=== PATIENT | male | born 1985 | race Caucasian/White ===

== ENCOUNTER → 2021-03-15 01:17 | Emergency (ER) | payer MEDICAID, OTHER ==
[~2021-03-15] VITALS: Ht 177.8 cm; Wt 154.2 kg
[~2021-03-15 01:17] MED LIST: ALUM & MAG HYDROX-SIMETH LIQ(MAALOX) 30 ML PO ONE; DONNATAL 5ml ORAL Elix (BELLADONNA ALK-PHENOBARB) PO ONE; LIDOCAINE VISCOUS 2% 15ML UD PO ONE
[2021-03-15 02:47] LABS: Basophils # (auto) 0 10 ^3/uL (0-0.2); Basophils % (auto) 0.4 % (0.0-2.0); Eosinophils # (auto) 0.1 10 ^3/uL (0-0.8); Eosinophils % (auto) 0.8 % (0.0-7.0); Hematocrit 46.6 % (41.0-53.0); Lymphocytes # (auto) 1.9 10 ^3/uL (0.4-5.4); Lymphocytes % (auto) 19.6 % (10.0-50.0); Mean Corpuscular Hemoglobin 29.9 pg (28.0-32.0); Mean Corpuscular Hgb Conc. 34.2 g/dL (32.0-36.0); Mean Corpuscular Volume 87.3 fL (80.0-100.0); Monocytes # (auto) 0.5 10 ^3/uL (0-1.3); Monocytes % (auto) 5.5 % (0.0-12.0); Neutrophils % (auto) 73.7 % (37.0-80.0); Red Blood Cells 5.34 10^6/uL (4.5-5.90); Red Cell Distribution Width 13.4 % (11.8-14.3); White Blood Cell 9.5 10^3/uL (4.4-10.8)
[2021-03-15 03:04] LABS: BUN/Creatinine Ratio 25.3; Calcium 9.2 mg/dL (8.5-10.1)
[2021-03-15 03:12] LABS: Total Protein 7.9 g/dL (6.4-8.2)
[2021-03-15 03:30] VITALS: BP 137/73
== END | disposition home or self-care (01) ==
LOC: ER 01:17
DX: K29.70 Gastritis, unspecified, without bleeding (principal); E11.65 Type 2 diabetes mellitus with hyperglycemia
CPT/HCPCS: 36415; 74176; 80053; 82962; 85025; 93005

== ENCOUNTER 2021-06-27 15:05 | Emergency (ER) | payer OTHER, MEDICAID ==
[~2021-06-27] VITALS: Ht 177.8 cm; Wt 147.4 kg
[2021-06-27 15:51] LABS: Basophils # (auto) 0 10 ^3/uL (0-0.2); Basophils % (auto) 0.7 % (0.0-2.0); Eosinophils # (auto) 0.1 10 ^3/uL (0-0.8); Eosinophils % (auto) 1.1 % (0.0-7.0); Hemoglobin 15.9 g/dL (13.5-17.5); Lymphocytes # (auto) 1.2 10 ^3/uL (0.4-5.4); Mean Corpuscular Hemoglobin 29.4 pg (28.0-32.0); Mean Corpuscular Hgb Conc. 33.8 g/dL (32.0-36.0); Mean Corpuscular Volume 86.9 fL (80.0-100.0); Monocytes # (auto) 0.4 10 ^3/uL (0-1.3); Monocytes % (auto) 6.9 % (0.0-12.0); Neutrophils # (auto) 3.9 10 ^3/uL (1.6-8.6); Neutrophils % (auto) 70.3 % (37.0-80.0); Nucleated Red Blood Cells % 0.2 %; Red Blood Cells 5.41 10^6/uL (4.5-5.90); Red Cell Distribution Width 13.8 % (11.8-14.3); White Blood Cell 5.6 10^3/uL (4.4-10.8)
[2021-06-27 16:15] LABS: Alanine Aminotransferase 66 U/L (16-61); Albumin 4.1 g/dL (3.4-5.0); Anion Gap 10 (5-15); Aspartate Aminotransferase 21 U/L (15-37); BUN/Creatinine Ratio 13.9; Blood Urea Nitrogen 10 mg/dL (7-18); Calcium 9.3 mg/dL (8.5-10.1); Carbon Dioxide 24 mmol/L (21-32); Chloride 106 mmol/L (98-107); GFR African American 158 mL/min; GFR Non-African American 131 mL/min; Glucose 98 mg/dL (74-106); Potassium 3.8 mmol/L (3.5-5.1); Sodium 140 mmol/L (136-145)
[2021-06-27 16:20] LABS: Alkaline Phosphatase 65 U/L (45-117); Bilirubin, Total 0.9 mg/dL (0.2-1.0)
[2021-06-27 17:33] VITALS: BP 145/81
== END 2021-06-27 19:04 | disposition home or self-care (01) ==
LOC: ER 15:05
DX: F41.1 Generalized anxiety disorder (principal); R00.2 Palpitations; E11.9 Type 2 diabetes mellitus without complications
CPT/HCPCS: 36415; 71045; 80053; 84484; 85025; 93005

== ENCOUNTER 2023-01-06 09:08 | Emergency (ER) | payer MEDICAID, OTHER ==
[~2023-01-06] VITALS: Ht 177.8 cm; Wt 160.0 kg
[2023-01-06 09:29] LABS: Basophils # (auto) 0.2 10 ^3/uL (0-0.2); Basophils % (auto) 1.9 % (0.0-2.0); Eosinophils # (auto) 0.1 10 ^3/uL (0-0.8); Hematocrit 46.9 % (41.0-53.0); Hemoglobin 15.9 g/dL (13.5-17.5); Lymphocytes # (auto) 1.8 10 ^3/uL (0.4-5.4); Mean Corpuscular Hemoglobin 29.6 pg (28.0-32.0); Mean Corpuscular Hgb Conc. 33.8 g/dL (32.0-36.0); Mean Corpuscular Volume 87.5 fL (80.0-100.0); Monocytes # (auto) 0.3 10 ^3/uL (0-1.3); Monocytes % (auto) 3.7 % (0.0-12.0); Neutrophils # (auto) 5.9 10 ^3/uL (1.6-8.6); Neutrophils % (auto) 71.4 % (37.0-80.0); Red Blood Cells 5.36 10^6/uL (4.5-5.90); Red Cell Distribution Width 14.1 % (11.8-14.3); White Blood Cell 8.2 10^3/uL (4.4-10.8)
[2023-01-06 09:49] LABS: Albumin 3.9 g/dL (3.4-5.0); BUN/Creatinine Ratio 21.1 (10.0-20.0); Calcium 9.1 mg/dL (8.5-10.1); Potassium 4.2 mmol/L (3.5-5.1)
[2023-01-06 09:51] LABS: Bilirubin, Total 0.4 mg/dL (0.2-1.0); INR 0.94 (0.9-1.15); Partial Thromboplastin Time 26.3 sec (24.6-33.4); Total Protein 7.6 g/dL (6.4-8.2)
[2023-01-06] MEDS ORDERED: LORA0.5T20 PO (10:48)
[2023-01-06 10:49] LABS: Urine Bacteria NONE SEEN /hpf (None Seen); Urine Blood Negative /uL (Negative); Urine Specific Gravity 1.022 (1.001-1.035); Urine WBC 1 /hpf (0 - 3)
[2023-01-06 12:04] VITALS: BP 107/49
== END 2023-01-06 12:05 | disposition home or self-care (01) ==
LOC: ER 09:08
DX: R07.89 Other chest pain (principal); F41.1 Generalized anxiety disorder; E11.65 Type 2 diabetes mellitus with hyperglycemia
CPT/HCPCS: 36415; 71045; 80053; 81001; 82962; 84484; 85025; 85379; 85610; 85730; 93005

== ENCOUNTER 2023-12-18 00:10 | Emergency (ER) | payer MEDICAID ==
[~2023-12-18] VITALS: Ht 177.8 cm; Wt 159.0 kg
[~2023-12-18 00:10] MED LIST changes: -ALUM & MAG HYDROX-SIMETH LIQ(MAALOX) 30 ML PO ONE; -DONNATAL 5ml ORAL Elix (BELLADONNA ALK-PHENOBARB) PO ONE; -LIDOCAINE VISCOUS 2% 15ML UD PO ONE; +LORA-1121 PO
[2023-12-18] MEDS: TETRACAINE HCL 0.5% OPTH(EYE) SOLN 4ML LEFTEYE ONE (00:24)
[2023-12-18] MEDS: TETRACAINE HCL 0.5% OPTH(EYE) SOLN 4ML ONE (00:24)
[2023-12-18 00:25] VITALS: BP 125/69; PULSE 82; RESP 18; TEMP 98.4; O2SAT 98
[2023-12-18] MEDS ORDERED: AZIT4SOL LEFTEYE (00:27)
[2023-12-18] MEDS ORDERED: IBUP-1455 PO (00:27)
[2023-12-18] MEDS: ACETAMINOPHEN/CODEINE#3 (300/30mg) TAB PO ONE (00:46)
== END 2023-12-18 00:42 | disposition home or self-care (01) ==
LOC: ER 00:10
DX: S05.02XA Injury of conjunctiva and corneal abrasion without foreign body, left eye, initial encounter (principal); E11.9 Type 2 diabetes mellitus without complications; W54.1XXA Struck by dog, initial encounter; Y93.89 Activity, other specified; Y92.89 Other specified places as the place of occurrence of the external cause; Y99.8 Other external cause status

== ENCOUNTER 2024-04-30 07:02 | Emergency (ER) | payer MEDICAID ==
[~2024-04-30] VITALS: Ht 177.8 cm; Wt 74.0 kg
[~2024-04-30 07:02] MED LIST changes: +AZIT4SOL LEFTEYE; +IBUP-1455 PO; +PANT40TA2 PO
[2024-04-30 08:34] VITALS: BP 152/83; PULSE 88; RESP 18; TEMP 98.3; O2SAT 96
[2024-04-30] MEDS ORDERED: CEPH500C PO (08:37)
[2024-04-30] MEDS ORDERED: TRIA0.02 TOP (08:37)
== END 2024-04-30 08:50 | disposition home or self-care (01) ==
LOC: ER 07:02
DX: L08.9 Local infection of the skin and subcutaneous tissue, unspecified (principal); M79.661 Pain in right lower leg; E66.01 Morbid (severe) obesity due to excess calories; J45.909 Unspecified asthma, uncomplicated; E11.9 Type 2 diabetes mellitus without complications; Z79.1 Long term (current) use of non-steroidal anti-inflammatories (NSAID); Z79.899 Other long term (current) drug therapy
CPT/HCPCS: 93971

== ENCOUNTER 2025-01-02 19:25 | Inpatient (IN) | payer MEDICAID ==
[~2025-01-02] VITALS: Ht 177.8 cm; Wt 134.0 kg
[~2025-01-02 19:25] MED LIST changes: +CEPH500C PO; +TRIA0.02 TOP
--- NOTE | 2025-01-02 19:53 | ED.PDOC ---
HPI Comments HPI: Poor Historian. * 39 y/o morbidly obese male presents with c/o nonradiating, substernal chest pain and shortness of breath with exertion, today. * Patient endorses on constant symptoms following onset 4-5 days ago. * He comments on pain being "dull" and "aching" in quality. * Patient reports his dad having a history of [place] in his 60's. Vitals Temperature: 98.6F Respiratory rate: 20 SpO2: 95%RA Heart rate: 94 Blood pressure: 124/82 Past medical history: anxiety, asthma, ADHD, depression, DM, morbid obesity, and sleep apnea, remote tobacco abuse quit 10 years ago. Past surgical history: childhood nasal surgery s/p nasal fracture Family history of coronary artery disease. REVIEW OF SYSTEMS: CONSTITUTIONAL: Denies acute: fever, diaphoresis, chills, generalized weakness. HEAD: Denies acute: headache, photophobia Eyes: Denies acute: Double vision, vision loss, eye pain, eye discharge. EARS: Denies acute: tinnitus, hearing loss, ear discharge, ear pain, THROAT: Denies acute: sore throat, swelling, difficulty swallowing , pain with swallowing, change in voice. NECK: Denies acute: neck pain, neck swelling, stiff neck. HEART: Denies acute : palpitations, LUNGS: Denies acute: wheezing, cough, hemoptysis ABDOMEN: Denies acute: abdominal pain, Nausea, Vomiting, diarrhea, melena , hematemesis, hematochezia SKIN: Denies acute: rash, redness, lesions, itchiness. EXTREMITIES: Denies acute: calf pain, numbness, tingling, weakness, denies pain in extremity. Denies acute: Low back pain. Neuro: Denies acute: focal neurological deficit, motor or sensory focal neurological deficit, tremors, seizure like activity, confusion, dizziness, change in mental status, loss of bowel or bladder function, cauda equina like symptoms. : Denies acute: dysuria, hematuria, flank pain, increase in urinary frequency. PSYCH: Denies acute: hallucination, suicidal ideation, homicidal ideation. PHYSICAL EXAM: General: no acute distress, awake and alert. Head: normocephalic, atraumatic. Neck: supple, trachea is midline, no swelling. Throat: Normal phonation. Eyes:, no erythema, no purulent discharge, no proptosis, no icterus. Heart: regular rate, regular rhythm, no significant murmur appreciated. Lungs: no apparent respiratory distress, Able to speak in full sentences. No wheezing, no rhonchi, no crackles. No stridors Clear to auscultation bilaterally. Abdomen: non tender to palpation, non distended, soft, no guarding, no rebound, + bowel sounds. Morbidly obese Neuro: Awake, Alert, oriented to name, self, situation, follows commands GCS=15. Speech is normal. Skin: no petechia, no purpura, no cyanosis, non-pale, not jaundice. Lower extremities: --trace bilateral - Pitting edema no deformity, no focal swelling, no calf TTP. Makes eye contact. moves all four extremities. Face: no apparent facial droop. Ambulating in the ED independently. ED COURSE: Chief Complaint: Chest Pain Time Seen by MD: 19:30 Primary Care Provider: NONE Reviewed Notes: Nurses Notes, Medications, Allergies Allergies: Coded Allergies: NO KNOWN ALLERGIES (Unverified , 03/06/14) Home Meds Active Scripts Cephalexin Monohydrate (Cephalexin) 500 Mg Cap, 1 CAP PO QID, #40 CAP Prov:ESDRAS ORONA 04/30/24 Triamcinolone Acetonide (Triamcinolone Acetonide) 0.025 % Cre, 1 APPLIC TOP BID, #30 GRAMS Prov:ESDRAS ORONA 04/30/24 Pantoprazole Sodium Sesquihydr (Protonix) 40 Mg Tab, 40 MG PO DAILY, #30 TAB Prov:MANI WASHINGTON MD 01/20/24 Ibuprofen Micronized (Ibuprofen) 800 Mg Tab, 800 MG PO Q8HP PRN, #15 TAB Prov:TEJ MENDEZ PAC 12/18/23 Azithromycin (Ophth) (Azasite) 1 % Julia, 2 DROP LEFTEYE QPM for 3 Days, #2.5 ML 0 Refills Prov:TEJ MENDEZ PAC 12/18/23 Lorazepam (ATIVAN TABLET) 0.5 Mg Tb, 1 TAB PO DAILY for 7 Days, #7 TAB Prov:BENJY AN MD 01/06/23 Information Source: Patient Mode of Arrival: Ambulatory Past Medical History PAST MEDICAL HISTORY: Anxiety, Asthma, Depression, DM Past Medical History (Other): ADHD, sleep apnea, morbid obesity Surgical History (Other): childhood nasal surgery s/p nasal fracture Family History Family History: Reviewed,noncontributory to illness Social History Smoker: Non-Smoker Alcohol: Denies ETOH Use Drugs: Denies Drug Use Lives In: Home EKG EKG #1: Pulse Rate (adult): 78 [place]: Normal Cardiac Rhythm: NSR Block: None Hypertrophy: None ST: Normal EKG #2: Pulse Rate (adult): 76 [place]: Normal Cardiac Rhythm: NSR Block: None Hypertrophy: None ST: Normal EKG #3: [place]: Normal Cardiac Rhythm: NSR Block: None Hypertrophy: None ST: Normal Was a procedure done? Was a procedure done?: No CP Differential Dx Differential Diagnosis: N/A Differential Diagnosis: Other (Ddx include but not limitied to gastritis, musculoskeletal pain, radiculopathy, atypical chest pain, dissection, aneurysm, ACS, unstable angina, hiatal hernia, GERD, anxiety, costochondritis, PE, pneumothroax, neoplasm, cardiac ischemia, drug abuse, anemia.) X-Ray, Labs, Meds, VS Vital Signs Date Time Temp Pulse Resp B/P (MAP) Pulse Ox O2 Delivery O2 Flow Rate FiO2 01/02/25 22:50 01/02/25 20:44 76 01/02/25 19:40 78 01/02/25 19:32 98.6 94 20 124/82 (96) 95 98.6 Lab Test 01/02/25 22:29 01/02/25 20:49 01/02/25 19:36 Range/Units Troponin I High Sensitivity Pending 4 4 </=54 ng/L White Blood Count 6.3 4.4-10.8 10^3/uL Red Blood Count 5.42 4.5-5.90 10^6/uL Hemoglobin 15.7 13.5-17.5 g/dL Hematocrit 47.1 41.0-53.0 % Mean Corpuscular Volume 86.9 80.0-100.0 fL Mean Corpuscular Hemoglobin 29.1 28.0-32.0 pg Mean Corpuscular Hemoglobin Concent 33.4 32.0-36.0 g/dL Red Cell Distribution Width 14.3 11.8-14.3 % Platelet Count 256 140-450 10^3/uL Mean Platelet Volume 8.0 6.9-10.8 fL Neutrophils (%) (Auto) 58.3 37.0-80.0 % Lymphocytes (%) (Auto) 35.0 10.0-50.0 % Monocytes (%) (Auto) 4.6 0.0-12.0 % Eosinophils (%) (Auto) 1.6 0.0-7.0 % Basophils (%) (Auto) 0.5 0.0-2.0 % Neutrophils # (Auto) 3.7 1.6-8.6 10 ^3/uL Lymphocytes # (Auto) 2.2 0.4-5.4 10 ^3/uL Monocytes # (Auto) 0.3 0-1.3 10 ^3/uL Eosinophils # (Auto) 0.1 0-0.8 10 ^3/uL Basophils # (Auto) 0 0-0.2 10 ^3/uL Nucleated Red Blood Cells 0.0 % D-Dimer, Quantitative < 0.19 0.0-0.49 mg/L FEU Sodium Level 141 136-145 mmol/L Potassium Level 3.9 3.5-5.1 mmol/L Chloride Level 107 98-107 mmol/L Carbon Dioxide Level 26 20-31 mmol/L Anion Gap 8 5-15 Blood Urea Nitrogen 9 9-23 mg/dL Creatinine 0.77 0.700-1.30 mg/dL Glomerular Filtration Rate Calc 116 >90 mL/min BUN/Creatinine Ratio 11.7 10.0-20.0 Serum Glucose 152 H 74-106 mg/dL Lactic Acid Level 1.7 0.4-2.0 mmol/L Calcium Level 10.4 8.7-10.4 mg/dL Total Bilirubin 0.7 0.2-1.0 mg/dL Aspartate Amino Transferase (AST) 17 13-40 U/L Alanine Aminotransferase (ALT) 38 7-40 U/L Alkaline Phosphatase 81 46-116 U/L B-Type Natriuretic Peptide 5.73 0-100 pg/mL Total Protein 7.4 5.7-8.2 g/dL Albumin 4.9 H 3.2-4.8 g/dL [facility] [id number] [facility] [id number] Ph: [phone] DIAGNOSTIC IMAGING Diagnostic Imaging Report : [id number] Signed PATIENT: LAUREN JAIMES ACCT: [id number] UNIT: [id number] : 1985 LOC: ER ROOM / BED: / AGE / SEX: 39 / M ADM STATUS: REG ER SERVICE 36 ORDERING PHYSICIAN: LAVELLE RAMSEY DO PROCEDURE(s): CXRP - CHEST PORTABLE REASON: CP ORDER NUMBER(s): [id number], ACCESSION NUMBER(s): [id number] CHEST RADIOGRAPH Indication: CP Technique: Single frontal view of the chest was obtained COMPARISON: XY CHEST PORTABLE on DOS: 01/20/24, XY CHEST PORTABLE on DOS: 01/06/23, CHEST XRAY 1 VIEW on DOS: 06/27/21, CXR1 on DOS: 06/27/21 FINDINGS: Lines and Tubes: None Lungs: Clear Pleura: No effusion. No pneumothorax. Cardiomediastinal contours: Unremarkable Bones: Unremarkable IMPRESSION: No acute abnormality demonstrated. ATED BY: ANDERS PEPE MD DICTATED DATE/TIME: 01/02/252010 SIGNED BY: ANDERS PEPE MD SIGNED DATE/TIME: 01/02/252010 CC: Time of 1ST Reevaluation: 19:30 Reevaluation 1ST: Unchanged Patient Education/Counseling: Diagnosis, Treatment Family Education/Counseling: No Family Present Comments Patient presented with the above HPI. Chest pain workup was initiated. patient was found with the above mentioned diagnosis. the following medications were ordered: please refer to order lists of meds and tests obtained by myself Dr. Ramsey. Patient ED course and VS have been stabilized. Patient has been reassessed in the ED and remained in a stable condition. Pertinent incidental findings were discussed with the patient and/or family. Patient/family voices understanding and is agreeable with plan. Patient has been observed in the ED adequate length of time to insure improvement/stability. Escalation of care considered: Consideration of escalation to observation or admission Patient was ADMITTED to the medicine team for further evaluation and treatment of their presentation. Patient's EKG shows abnormalities of T-wave inversions in leads V2 V3 V4 V5 V6 All the reports of any imaging studies that were ordered by myself were reviewed by myself. Departure 1 Departure Time of Disposition: 20:01 Impression: Primary Impression: Chest pain Additional Impression: Abnormal EKG Disposition: 09 ADMITTED INPATIENT Admit to: Tele Condition: Guarded Discharged With: Self Critical Care Note Critical Care Time?: No Heart Score Heart Score: Heart Score Response (Comments) Value History Slightly Suspicious [address]-Deviation 2 Age <45 0 Risk Factors 1 or 2 risk factors 1 Troponin Normal limit 0 Total 3 I personally scribed for LAVELLE RAMSEY DO ([email or web address]) on 01/02/25 at 19:52. Electronically submitted by Corky Oquendo ([email or web address]). I personally scribed for LAVELLE RAMSEY DO ([email or web address]) on 01/02/25 at 20:10. Electronically submitted by Corky Oquendo ([email or web address]). I personally scribed for LAVELLE RAMSEY DO ([email or web address]) on 01/02/25 at 22:50. Electronically submitted by Corky Oquendo ([email or web address]). LAVELLE RAMSEY DO Jan 02, 2025 19:52
[2025-01-02 19:56] LABS: Basophils # (auto) 0 10 ^3/uL (0-0.2); Basophils % (auto) 0.5 % (0.0-2.0); Eosinophils # (auto) 0.1 10 ^3/uL (0-0.8); Eosinophils % (auto) 1.6 % (0.0-7.0); Hematocrit 47.1 % (41.0-53.0); Hemoglobin 15.7 g/dL (13.5-17.5); Lymphocytes # (auto) 2.2 10 ^3/uL (0.4-5.4); Mean Corpuscular Hemoglobin 29.1 pg (28.0-32.0); Mean Corpuscular Hgb Conc. 33.4 g/dL (32.0-36.0); Mean Corpuscular Volume 86.9 fL (80.0-100.0); Monocytes # (auto) 0.3 10 ^3/uL (0-1.3); Monocytes % (auto) 4.6 % (0.0-12.0); Neutrophils # (auto) 3.7 10 ^3/uL (1.6-8.6); Neutrophils % (auto) 58.3 % (37.0-80.0); Platelet Count (auto) 256 10^3/uL (140-450); Red Blood Cells 5.42 10^6/uL (4.5-5.90); Red Cell Distribution Width 14.3 % (11.8-14.3); White Blood Cell 6.3 10^3/uL (4.4-10.8)
[2025-01-02 20:09] LABS: Alanine Aminotransferase 38 U/L (7-40); Alkaline Phosphatase 81 U/L (46-116); Anion Gap 8 (5-15); Aspartate Aminotransferase 17 U/L (13-40); BUN/Creatinine Ratio 11.7 (10.0-20.0); Bilirubin, Total 0.7 mg/dL (0.2-1.0); Calcium 10.4 mg/dL (8.7-10.4); Carbon Dioxide 26 mmol/L (20-31); Chloride 107 mmol/L (98-107); Potassium 3.9 mmol/L (3.5-5.1); Sodium 141 mmol/L (136-145); Total Protein 7.4 g/dL (5.7-8.2)
--- NOTE | 2025-01-02 20:14 | DVH ---
CHEST RADIOGRAPH Indication: CP Technique: Single frontal view of the chest was obtained COMPARISON: XY CHEST PORTABLE on DOS: 01/20/24, XY CHEST PORTABLE on DOS: 01/06/23, CHEST XRAY 1 VIEW on DOS: 06/27/21, CXR1 on DOS: 06/27/21 FINDINGS: Lines and Tubes: None Lungs: Clear Pleura: No effusion. No pneumothorax. Cardiomediastinal contours: Unremarkable Bones: Unremarkable IMPRESSION: No acute abnormality demonstrated.
[2025-01-02 20:17] LABS: Albumin 4.9 g/dL (3.2-4.8); Blood Urea Nitrogen 9 mg/dL (9-23); Glucose 152 mg/dL (74-106)
--- NOTE | 2025-01-02 20:24 | ECG ---
[facility] Test Date: 2025-01-02 Test Time: 19:40:51 Pat Name: LAUREN JAIMES Department: ER Room: 0280T Gender: M Pin Cleaner: SHAYAN : 1985 Requested By: LAVELLE RAMSEY Order Number: [id number] Reading MD: Ruslan Root Measurements Intervals [place] Rate: 78 P: 82 MN: 154 QRS: 72 QRSD: 93 T: 78 QT: 491 QTc: 560 Interpretive Statements Sinus rhythm Abnormal R-wave progression, early transition Borderline T wave abnormalities Prolonged QT interval Electronically Signed On 01-04-2025 22:35:52 PDT by Ruslan Root Please click the below link to view image of tracing.
[2025-01-02] MEDS: ASPirin 325 MG TAB PO ONE (20:30)
[2025-01-02] MEDS: NITROGLYCERIN 0.4 MG SL TAB SL ONE (20:30)
--- NOTE | 2025-01-02 23:25 | DVHHPRES ---
History of Present Illness Resident Creating Document: NIKKI RODRIGUEZ RESDIENT History of Present Illness This is a 39-year-old morbidly obese male with past medical history of asthma, anxiety, depression, dyslipidemia, diabetes, sleep apnea came to the hospital due to chest pain for 5 days. He reports intermittent central chest pain, in variable functional class, 4/10, which increases with taking food with no clear relieving factor. He also reports shortness of breaths. He denies fever, cough, nausea, vomiting, or any recent bowel or bladder habit changes. PMHx: asthma, anxiety, depression, dyslipidemia, diabetes, sleep apnea, morbidly obese PSHx: Nasal surgery due to nasal function Family history: Noncontributory Social history: Ex-smoker with 5 pack year history, denies any other drug use Home medication: Patient was previously prescribed medicine, does not remember the names except metformin, nonadherence Allergic history: No known allergies Patient seen and examined at bedside. Currently has no new complaints. Review of Systems Review of Systems General: patient denies fever, fatigue, weaknes, sweating, any recent changes in appetite and weight HEENT: No headaches, visiual changes, hearing loss, tinnitus, nasal congestion and discharge, and sore throat. Cardiovascular: Reports chest pain and shortness of breaths Respiratory: No cough, and wheezing. Gastrointestinal: Denies nausea, vomiting, dysphagia, odynophagia, heartburn, abdominal pain, flatulence, bloating, diarrhea, constipation, change in stool, or blood in stool. Genitourinary: No dysuria, hematuria, discharge, frequency, urgency, nocturia, incontinence, and urinary retention. Endocrine: No heat or cold intolerance, polydipsia, polyuria, and polyphagia. Neurological: No dizziness, extremity weakness and numbness, tremors, gait disturbance, seizures, and memory impairment. Psychiatric: Denies depression, anxiety,or insomnia. Musculoskeletal: Denies neck pain, stiffness and swelling, back pain, muscle weakness, joint pain, stiffness, swelling, or limited range of motion. Skin: No rashes, itching, skin lesion, changes in hair, nail, skin texture and breast. Hematologic/Lymphatic: Denies easy bruising, bleeding tendencies, or lymph node enlargement. Allergies: Coded Allergies: NO KNOWN ALLERGIES (Unverified , 03/06/14) Exam Vital Signs Vital Signs Date Time Temp Pulse Resp B/P (MAP) Pulse Ox O2 Delivery O2 Flow Rate FiO2 01/02/25 22:50 01/02/25 19:32 98.6 20 124/82 (96) 95 98.6 Exam General Appearance: Alert, Oriented X3, Cooperative, No acute distress morbidly obese HEENT: Atraumatic, PERRLA, EOMI, Mucous membrane moist/pink Respiratory: Clear to auscultation, Normal air movement Cardiovascular: Regular rate, Normal S1, Normal S2, No murmurs, no chest wall tenderness Abdominal: Normal bowel sounds, Soft, No tenderness, No hepatospenomegaly, No masses Extremities: Bilateral lower limb grade 1 pedal edema Skin: No rashes, No breakdown, No significant lesion Neuro: Normal gait, Normal speech, Strength at 5/5 X4 ext, Normal tone, Sensation intact, Cranial nerves 3-12 NL, Reflexes 2+ Psych/Mental Status: Mental status NL, Mood NL Labs/Xrays Labs Test 01/02/25 22:29 01/02/25 19:36 Range/Units Troponin I High Sensitivity 5 </=54 ng/L White Blood Count 6.3 4.4-10.8 10^3/uL Red Blood Count 5.42 4.5-5.90 10^6/uL Hemoglobin 15.7 13.5-17.5 g/dL Hematocrit 47.1 41.0-53.0 % Mean Corpuscular Volume 86.9 80.0-100.0 fL Mean Corpuscular Hemoglobin 29.1 28.0-32.0 pg Mean Corpuscular Hemoglobin Concent 33.4 32.0-36.0 g/dL Red Cell Distribution Width 14.3 11.8-14.3 % Platelet Count 256 140-450 10^3/uL Mean Platelet Volume 8.0 6.9-10.8 fL Neutrophils (%) (Auto) 58.3 37.0-80.0 % Lymphocytes (%) (Auto) 35.0 10.0-50.0 % Monocytes (%) (Auto) 4.6 0.0-12.0 % Eosinophils (%) (Auto) 1.6 0.0-7.0 % Basophils (%) (Auto) 0.5 0.0-2.0 % Neutrophils # (Auto) 3.7 1.6-8.6 10 ^3/uL Lymphocytes # (Auto) 2.2 0.4-5.4 10 ^3/uL Monocytes # (Auto) 0.3 0-1.3 10 ^3/uL Eosinophils # (Auto) 0.1 0-0.8 10 ^3/uL Basophils # (Auto) 0 0-0.2 10 ^3/uL Nucleated Red Blood Cells 0.0 % D-Dimer, Quantitative < 0.19 0.0-0.49 mg/L FEU Sodium Level 141 136-145 mmol/L Potassium Level 3.9 3.5-5.1 mmol/L Chloride Level 107 98-107 mmol/L Carbon Dioxide Level 26 20-31 mmol/L Anion Gap 8 5-15 Blood Urea Nitrogen 9 9-23 mg/dL Creatinine 0.77 0.700-1.30 mg/dL Glomerular Filtration Rate Calc 116 >90 mL/min BUN/Creatinine Ratio 11.7 10.0-20.0 Serum Glucose 152 H 74-106 mg/dL Lactic Acid Level 1.7 0.4-2.0 mmol/L Calcium Level 10.4 8.7-10.4 mg/dL Total Bilirubin 0.7 0.2-1.0 mg/dL Aspartate Amino Transferase (AST) 17 13-40 U/L Alanine Aminotransferase (ALT) 38 7-40 U/L Alkaline Phosphatase 81 46-116 U/L B-Type Natriuretic Peptide 5.73 0-100 pg/mL Total Protein 7.4 5.7-8.2 g/dL Albumin 4.9 H 3.2-4.8 g/dL Assessment/Plan Assessment/Plan Chest pain, likely due to GERD ? ACS History of GERD EKGs shows left ventricular strain pattern, serial trop I is within normal limits Echocardiogram Aspirin Pain control Protonix Diabetes (hemoglobin A1c 6.7%) Currently on insulin sliding scale Morbid obesity BMI is 51.9 Dyslipidemia Currently on atorvastatin sleep apnea, BiPAP during night History of asthma, stable ADHD Depression Anxiety Nonadherence to medicine Patient is not taking metformin DIET: Cardiac diet DVT PROPHYLAXIS: Lovenox GI PROPHYLAXIS:: Protonix CODE STATUS: Goal of care discussed for more than 18 minutes, full code DISPOSITION: Med/surge Patient's status and paln discussed with the patient. Case discussed with Dr. Fatima. Plan discussed with: Patient, Other (RN) My Orders Orders - NIKKI RODRIGUEZ RESDIENT Procedure Category Date Status Time Admit ADMIT 01/02/25 Verified 23:17 Code Status CODE 01/02/25 Verified 23:17 Vital Signs [facility] 01/02/25 Verified 23:17 Review Orders With AMARA 01/02/25 Verified Adm. 23:17 Consistent DIET 01/03/25 Verified Carb(Ccho)Diabetes Breakfast Acetaminophen Tablet PHA 01/02/25 Verified (Tylenol Tablet) 23:30 Notify Md Of Changes [facility] 01/02/25 Verified From Base 23:17 Advance Directive [facility] 01/02/25 Verified 23:17 Echo 2d Mode Cardiac US 01/02/25 Verified DOP 23:17 Urinalysis LAB 01/02/25 Verified 23:17 Patient Condition ORDERS 01/02/25 Verified 23:17 Allergies [facility] 01/02/25 Verified 23:17 Hydrocodone-Acet PHA 01/02/25 Verified 5/325mg Tab ([place] 23:30 Date of Service: Jan 02, 2025 Billing Provider: JESUS FATIMA MD Common Visit Codes: [id number] INP/OBS CARE (HIGH) NIKKI RODRIGUEZ RESDIENT Jan 02, 2025 23:25 NIRMALA DAVIES RESIDENT Jan 03, 2025 04:02 JESUS FATIMA MD Jan 03, 2025 17:40
[2025-01-02] MEDS: PANTOPRAZOLE 40 MG/10 ML VIAL INJ IV ONE (23:30)
[2025-01-02] MEDS: ATORVASTATIN 20 MG TAB PO ONE (23:30)
[2025-01-02] MEDS ORDERED: NITROGLYCERIN 0.4 MG SL TAB SL PRN (23:30)
[2025-01-02] MEDS ORDERED: HYDROcodone-ACET 5/325MG TAB PO PRN (23:30)
[2025-01-02] MEDS ORDERED: DEXTROSE (50%) 50ML SYRG IV PRN (23:30)
[2025-01-02] MEDS ORDERED: ACETAMINOPHEN 325 MG TAB PO PRN (23:30)
[2025-01-02] MEDS ORDERED: MORPHINE SULFATE INJ 2 MG/ml SYRG IV PRN (23:30)
[2025-01-02 23:46] VITALS: BP 124/82; PULSE 76; RESP 20; TEMP 98.6; O2SAT 95
[2025-01-03] VITALS (8 sets, daily range): BP systolic 123–142; BP diastolic 68–88; PULSE 58–89; RESP 14–18; TEMP 98.2–98.6; O2SAT 94–99
[2025-01-03 00:15] LABS: Magnesium 2.2 mg/dL (1.6-2.6)
[2025-01-03 04:02] LABS: Basophils # (auto) 0 10 ^3/uL (0-0.2); Basophils % (auto) 0.6 % (0.0-2.0); Eosinophils # (auto) 0.1 10 ^3/uL (0-0.8); Eosinophils % (auto) 1.8 % (0.0-7.0); Hematocrit 42.9 % (41.0-53.0); Hemoglobin 14.9 g/dL (13.5-17.5); Lymphocytes # (auto) 2.1 10 ^3/uL (0.4-5.4); Mean Corpuscular Hemoglobin 30.4 pg (28.0-32.0); Mean Corpuscular Hgb Conc. 34.8 g/dL (32.0-36.0); Mean Corpuscular Volume 87.4 fL (80.0-100.0); Monocytes # (auto) 0.5 10 ^3/uL (0-1.3); Neutrophils # (auto) 3.1 10 ^3/uL (1.6-8.6); Neutrophils % (auto) 52.6 % (37.0-80.0); Platelet Count (auto) 227 10^3/uL (140-450); Red Blood Cells 4.91 10^6/uL (4.5-5.90); Red Cell Distribution Width 14.2 % (11.8-14.3)
[2025-01-03 04:30] LABS: INR 1.09 (0.9-1.15); Partial Thromboplastin Time 26.6 SEC (24.5-34.5); Prothrombin Time 11.5 sec (9.3-11.8)
[2025-01-03 06:39] LABS: Potassium 3.9 mmol/L (3.5-5.1); Sodium 141 mmol/L (136-145)
[2025-01-03 06:40] LABS: Anion Gap 8 (5-15); Carbon Dioxide 25 mmol/L (20-31)
[2025-01-03 06:41] LABS: Calcium 9.8 mg/dL (8.7-10.4)
[2025-01-03 06:46] LABS: BUN/Creatinine Ratio 12.2 (10.0-20.0); Blood Urea Nitrogen 9 mg/dL (9-23)
[2025-01-03 06:47] LABS: Chloride 108 mmol/L (98-107)
[2025-01-03 06:48] LABS: Glucose 120 mg/dL (74-106)
--- NOTE | 2025-01-03 06:50 | ECG ---
[facility] Test Date: 2025-01-02 Test Time: 20:44:07 Pat Name: LAUREN AJIMES Department: ER Room: 0280T Gender: M Mail Sorter: SHAYAN : 1985 Requested By: LAVELLE RAMSEY Order Number: [id number] Reading MD: Ruslan Root Measurements Intervals [place] Rate: 76 P: 87 RI: 153 QRS: 77 QRSD: 89 T: 80 QT: 501 QTc: 564 Interpretive Statements Sinus rhythm Abnormal R-wave progression, early transition Borderline repolarization abnormality Prolonged QT interval Electronically Signed On 01-04-2025 22:36:20 PDT by Ruslan Root Please click the below link to view image of tracing.
[2025-01-03] MEDS: InsuLIN REG 1unit/0.01ml Soln (100units/ml) SC SCH (07:00)
[2025-01-03] MEDS: ACCU-CHEK COMFORT CURVE STRIP VI SCH (07:04)
[2025-01-03 08:06] LABS: Urine Bacteria None Seen /hpf (None Seen)
[2025-01-03 08:17] LABS: Urine Blood Negative /uL (Negative); Urine Clarity Clear (Clear); Urine Color Light-Yellow (Yellow); Urine Mucus FEW (None Seen); Urine Protein, UAD Negative (Negative); Urine Specific Gravity 1.021 (1.001-1.035); Urine Squamous Epithelial Cell FEW /hpf (<5); Urine Urobilinogen Normal (Negative); Urine WBC 2 /HPF (0-3); Urine pH 6.5 (5.0-9.0)
[2025-01-03 08:31] LABS: Amphetamine Screen, Urine Neg (NEGATIVE); Barbiturate Scree,Urine Neg (NEGATIVE); Benzodiazephine Screen, Urine Neg (NEGATIVE); Cannabinoid Screen, Urine Neg (NEGATIVE); Cocaine Screen, Urine Neg (NEGATIVE); Opiate Scree,Urine Neg (NEGATIVE); Phencyclidine Screen, Urine Neg (NEGATIVE)
[2025-01-03] MEDS: ASPirin 81 mg TAB PO SCH (09:07)
[2025-01-03] MEDS: PANTOPRAZOLE 40 MG/10 ML VIAL INJ IV SCH (09:07)
[2025-01-03] MEDS: ENOXAPARIN SOD 40 MG/0.4 ML SYRINGE SC SCH (09:07)
--- NOTE | 2025-01-03 10:28 | DVH ---
Date: 01/03/2025 09:02 AM Examination: XY KUB ABDOMEN SINGLE VIEW History: abdominal pain Comparison: None TECHNIQUE: Frontal views of the abdomen was obtained. FINDINGS: Nonspecific bowel gas pattern with mildly dilated loops of small bowel measuring up to 2.6 cm with a gas and stool visualized in the colon. The lung bases are unremarkable. No acute osseous abnormality identified. IMPRESSION: Nonspecific bowel gas pattern with mildly dilated loops of small bowel measuring up to 2.6 cm with a gas and stool visualized in the colon.
[2025-01-03] MEDS: LACTULOSE 20Gm/30ML SOLN PO ONE (12:08)
--- NOTE | 2025-01-03 12:47 | DVHPNRES ---
Progress Note Date Seen: Jan 03, 2025 Resident Creating Document: NANCY NEWBERRY RESIDENT Has the PT tested + for MRSA If YES, has PT been informed?: No Medical Necessity Reason Pt with a Central, PICC or Fol: No Subjective Review of Systems This is a 39-year-old morbidly obese male with past medical history of asthma, anxiety, depression, dyslipidemia, diabetes, sleep apnea came to the hospital due to chest pain for 5 days. He reports intermittent central chest pain, in variable functional class, 4/10, which increases with taking food with no clear relieving factor. He also reports shortness of breaths. He denies fever, cough, nausea, vomiting, or any recent bowel or bladder habit changes. PMHx: asthma, anxiety, depression, dyslipidemia, diabetes, sleep apnea, morbidly obese PSHx: Nasal surgery due to nasal function Family history: Noncontributory Social history: Ex-smoker with 5 pack year history, denies any other drug use Home medication: Patient was previously prescribed medicine, does not remember the names except metformin, nonadherence Allergic history: No known allergies Patient seen and examined at bedside. Currently has no new complaints. Objective vital signs Vital Sign Date Time Temp Pulse Resp B/P (MAP) Pulse Ox O2 Delivery O2 Flow Rate FiO2 01/03/25 12:34 98.0 68 15 121/70 (87) 98 98.0 01/03/25 07:42 Room Air* 0 21 medications Current Medications Medications Dose Ordered Sig/[place] Route Start Time Stop Time Status Last Admin Dose Admin Acetaminophen 650 mg Q6HP PRN PO 01/02/25 23:30 Acetaminophen/ Hydrocodone Bitart 1 tab Q4HP PRN PO 01/02/25 23:30 Enoxaparin Sodium 40 mg DAILY SC 01/03/25 10:00 01/03/25 09:07 40 MG Nitroglycerin 0.4 mg Q5MINP PRN SL 01/02/25 23:30 Morphine Sulfate 2 mg Q30M PRN IV 01/02/25 23:30 Aspirin 81 mg DAILY PO 01/03/25 10:00 01/03/25 09:07 81 MG Atorvastatin Calcium 40 mg HS PO 01/03/25 22:00 Pantoprazole Sodium 40 mg DAILY IV 01/03/25 10:00 01/03/25 09:07 40 MG Diagnostic Test (Pha) 1 strip ACHS 01/03/25 07:00 01/03/25 12:33 1 STRIP Insulin Human Regular ACHS SC 01/03/25 07:00 Dextrose 50 ml UD PRN IV 01/02/25 23:30 Examination General Appearance: Alert, Oriented X3, Cooperative, No acute distress morbidly obese HEENT: Atraumatic, PERRLA, EOMI, Mucous membrane moist/pink Respiratory: Clear to auscultation, Normal air movement Cardiovascular: Regular rate, Normal S1, Normal S2, No murmurs, no chest wall tenderness Abdominal: Normal bowel sounds, Soft, No tenderness, No hepatospenomegaly, No masses Extremities: no edema Skin: No rashes, No breakdown, No significant lesion Neuro: Normal gait, Normal speech, Strength at 5/5 X4 ext, Normal tone, Sensation intact, Cranial nerves 3-12 NL, Reflexes 2+ Psych/Mental Status: Mental status NL, Mood NL laboratory and microbiology Laboratory Tests 01/03/25 06:13 01/03/25 03:42 Test 01/03/25 06:13 Range/Units Serum Glucose 120 H 74-106 mg/dL Problem List/Assessment/Plan Problem List/Assessment/Plan Chest pain and epigastric pain, likely due to GERD Ruled out ACS History of GERD EKGs shows left ventricular strain pattern, serial trop I is within normal limits Echocardiogram: EF 60% RV strain due to sleep apnea Aspirin Pain control Protonix Diabetes (hemoglobin A1c 6.7%) Currently on insulin sliding scale Morbid obesity BMI is 51.9 Dyslipidemia Currently on atorvastatin sleep apnea, BiPAP during night History of asthma, stable ADHD Depression Anxiety DIET: Cardiac diet DVT PROPHYLAXIS: Lovenox GI PROPHYLAXIS:: Protonix CODE STATUS: Goal of care discussed for more than 18 minutes, full code DISPOSITION: Med/surge Patient's status and plan discussed with the patient. Case discussed with Dr. Gan Plan discussed with: Patient, Other My Orders My Orders Orders - NANCY NEWBERRY RESIDENT Procedure Category Date Status Time Kub Abdomen Single XY 01/03/25 Resulted View 06:54 NANYC NEWBERRY RESIDENT Jan 03, 2025 12:47
[2025-01-03] MEDS ORDERED: B CO PO (15:17)
[2025-01-03] MEDS ORDERED: CHOL20007 OR (15:17)
--- NOTE | 2025-01-03 17:13 | DVHSR ---
APPROVED REPORT EXAM: Two-dimensional and M-mode echocardiogram with Doppler and color Doppler. Blood Pressure: 126/73 mmHg INDICATION Chest Pain RISK FACTORS Obesity: Height: 5'10", Weight: 361 DIMENSIONS LVDd4.0 (3.8-5.7cm)LA (2D)4.1 (1.9-4.0cm)Aortic Root3.3 (2.0-3.7cm) LVDs2.9 (2.5-4.0cm)LA (MM) (1.9-4.0cm)Aortic Cusp Exc1.8 (1.5-2.0cm) EF (%) 55.0 (55-70%)Rt. Atrium4.7 (1.9-4.0cm)Asc. Aorta cm IVSd1.2 (0.7-1.1cm)RV (D)4.5 (1.8-2.4cm) PWd1.2 (0.7-1.1cm) Mitral Valve MitralMitral Stenosis E wave0.95m/sMV Mean GR.mmHg A wave0.92m/sMV Peak GR.mmHg E/A ratio1.02D MVAcm2 DECEL [id number] 1/2 Timems Aortic Valve Aortic ValveAortic Stenosis V11.10m/Nova Mean GR.3mmHg V21.24m/Nova Peak GR.6mmHg LVOT Diameter2.2 (1.8-2.4cm)Doppler AVA3.37cm2 Pulmonic Valve V20.98m/s Tricuspid Valve TR Velocity2.81m/s [id number] Other Information Technically limited study due to body habitus. Conclusion Normal LV size with low normal systolic function. LVEF 50-55%. Normal wall motion. Mild LVH. Probably grade 1 diastolic dysfunction. Normal RV size and function. Mild biatrial enlargement. No significant valvular disease. Trace MR. Trace TR. RVSP estimated at 40 mmHg based on RAP of 8 mmHg. Dilated, collapsing IVC. No pericardial effusion. TDS.
[2025-01-03] MEDS: ATORVASTATIN 20 MG TAB PO SCH (21:28)
[2025-01-04 01:00] VITALS: BP 134/75; PULSE 58; RESP 18; TEMP 97.9; O2SAT 98
[2025-01-04 05:00] VITALS: BP 131/87; PULSE 56; RESP 18; TEMP 98.7; O2SAT 96
[2025-01-04 07:48] VITALS: O2SAT 95
[2025-01-04 08:00] VITALS: PULSE 54
[2025-01-04 09:00] VITALS: BP 140/91; PULSE 67; RESP 17; TEMP 97.5; O2SAT 97
--- NOTE | 2025-01-04 10:38 | ECG ---
[facility] Test Date: 2025-01-02 Test Time: 22:45:18 Pat Name: LAUREN JAIMES Department: ED Room: 0280T A Gender: M Can Repairer: SHAYAN : 1985 Requested By: LAVELLE RAMSEY Order Number: [id number] Reading MD: Ruslan Root Measurements Intervals [place] Rate: 69 P: 85 [place]: 154 QRS: 78 QRSD: 88 T: 70 QT: 359 QTc: 385 Interpretive Statements Sinus rhythm Abnormal R-wave progression, early transition Borderline T wave abnormalities Electronically Signed On 01-04-2025 22:36:29 PDT by Ruslan Root Please click the below link to view image of tracing.
[2025-01-04] MEDS ORDERED: PANT40TA2 PO (14:28)
[2025-01-04] MEDS ORDERED: ACET-1882 PO (14:28)
--- NOTE | 2025-01-04 16:04 | DVHDSRES ---
Discharge Summary Date of Admission Resident Creating Document: NANCY NEWBERRY RESIDENT Jan 02, 2025 at 23:17 Date of Discharge: Jan 04, 2025 Admitting Diagnosis chest pain Labs/Diagnostic Data: Laboratory Results Test 01/04/25 06:32 01/03/25 07:57 01/03/25 06:13 01/03/25 03:42 POC Glucose 121 mg/dl (70-106) Urine Color Light-yellow (Yellow) Urine Clarity Clear (Clear) Urine pH 6.5 (5.0-9.0) Urine Specific [place] 1.021 (1.001-1.035) Urine Protein Negative (Negative) Urine Ketones Negative (Negative) Urine Blood Negative /uL (Negative) Urine Nitrite Negative (Negative) Urine Bilirubin Negative (Negative) Urine Urobilinogen Normal mg/dL (Negative) Urine Leukocyte Esterase Negative /uL (Negative) Urine RBC <1 /hpf (0 - 3) Urine Microscopic WBC 2 /HPF (0-3) Urine Squamous Epithelial Cells Few /hpf (<5) Urine Bacteria None seen /hpf (None Seen) Urine Mucus Few (None Seen) Urine Glucose Normal mg/dL (Normal) Urine Opiates Screen Neg (NEGATIVE) Urine Fentanyl Screen Neg (NEGATIVE) Urine Barbiturates Screen Neg (NEGATIVE) Urine Phencyclidine Screen Neg (NEGATIVE) Urine Amphetamines Screen Neg (NEGATIVE) Urine Benzodiazepines Screen Neg (NEGATIVE) Urine Cocaine Screen Neg (NEGATIVE) Urine Cannabinoids Screen Neg (NEGATIVE) Sodium Level 141 mmol/L (136-145) Potassium Level 3.9 mmol/L (3.5-5.1) Chloride Level 108 mmol/L (98-107) Carbon Dioxide Level 25 mmol/L (20-31) Anion Gap 8 (5-15) Blood Urea Nitrogen 9 mg/dL (9-23) Creatinine 0.74 mg/dL (0.700-1.30) Glomerular Filtration Rate Calc 117 mL/min (>90) BUN/Creatinine Ratio 12.2 (10.0-20.0) Serum Glucose 120 mg/dL (74-106) Calcium Level 9.8 mg/dL (8.7-10.4) White Blood Count 6.0 10^3/uL (4.4-10.8) Red Blood Count 4.91 10^6/uL (4.5-5.90) Hemoglobin 14.9 g/dL (13.5-17.5) Hematocrit 42.9 % (41.0-53.0) Mean Corpuscular Volume 87.4 fL (80.0-100.0) Mean Corpuscular Hemoglobin 30.4 pg (28.0-32.0) Mean Corpuscular Hemoglobin Concent 34.8 g/dL (32.0-36.0) Red Cell Distribution Width 14.2 % (11.8-14.3) Platelet Count 227 10^3/uL (140-450) Mean Platelet Volume 7.9 fL (6.9-10.8) Neutrophils (%) (Auto) 52.6 % (37.0-80.0) Lymphocytes (%) (Auto) 36.0 % (10.0-50.0) Monocytes (%) (Auto) 9.0 % (0.0-12.0) Eosinophils (%) (Auto) 1.8 % (0.0-7.0) Basophils (%) (Auto) 0.6 % (0.0-2.0) Neutrophils # (Auto) 3.1 10 ^3/uL (1.6-8.6) Lymphocytes # (Auto) 2.1 10 ^3/uL (0.4-5.4) Monocytes # (Auto) 0.5 10 ^3/uL (0-1.3) Eosinophils # (Auto) 0.1 10 ^3/uL (0-0.8) Basophils # (Auto) 0 10 ^3/uL (0-0.2) Nucleated Red Blood Cells 0.0 % Prothrombin Time 11.5 sec (9.3-11.8) Prothrombin Time INR 1.09 (0.9-1.15) Activated Partial Thromboplast Time 26.6 SEC (24.5-34.5) Test 01/02/25 22:29 01/02/25 19:36 Magnesium Level 2.2 mg/dL (1.6-2.6) Troponin I High Sensitivity 5 ng/L (</=54) Triglycerides Level 202 mg/dL (< 150) Cholesterol Level 158 mg/dL (< 200) LDL Cholesterol 109 mg/dL (< 100) HDL Cholesterol 32 mg/dL (40-59) Thyroid Stimulating Hormone (TSH) 2.92 uIU/mL (0.55-4.78) D-Dimer, Quantitative < 0.19 mg/L FEU (0.0-0.49) Hemoglobin A1c 6.7 % A1C (<5.7) Lactic Acid Level 1.7 mmol/L (0.4-2.0) Total Bilirubin 0.7 mg/dL (0.2-1.0) Aspartate Amino Transferase (AST) 17 U/L (13-40) Alanine Aminotransferase (ALT) 38 U/L (7-40) Alkaline Phosphatase 81 U/L (46-116) B-Type Natriuretic Peptide 5.73 pg/mL (0-100) Total Protein 7.4 g/dL (5.7-8.2) Albumin 4.9 g/dL (3.2-4.8) Other Laboratory Tests 01/03/25 06:13 01/03/25 03:42 Brief Hx & Hospital Course: The patient is a 39-year-old obese male with a history of asthma, anxiety, depression, dyslipidemia, diabetes, and sleep apnea who was admitted due to intermittent central chest pain for five days, associated with a variable functional class of 4/10 and exacerbation with food intake. Initial evaluation included an EKG NSR no ST elevations and serial troponins within normal limits, effectively ruling out ACS. An echocardiogram revealed an ejection fraction of 60% with right ventricular strain, likely secondary to sleep apnea. Given his history of GERD, his chest pain was attributed to reflux, and he was managed with Protonix for acid suppression and symptomatic pain control. During hospitalization, the patient was continued on his home medications, including atorvastatin for dyslipidemia and an insulin sliding scale for diabetes (A1c 6.7%). Given his BMI weight management strategies were reinforced. He remained stable on BiPAP at night for sleep apnea. DVT prophylaxis was provided with Lovenox, and GI prophylaxis with Protonix. After discussion of his care plan, he was discharged in stable condition with instructions on medication adherence, dietary modifications, and outpatient follow-up. General Appearance: Alert, Oriented X3, Cooperative, No acute distress morbidly obese HEENT: Atraumatic, PERRLA, EOMI, Mucous membrane moist/pink Respiratory: Clear to auscultation, Normal air movement Cardiovascular: Regular rate, Normal S1, Normal S2, No murmurs, no chest wall tenderness Abdominal: Normal bowel sounds, Soft, No tenderness, No hepatospenomegaly, No masses Extremities: no edema Skin: No rashes, No breakdown, No significant lesion Neuro: Normal gait, Normal speech, Strength at 5/5 X4 ext, Normal tone, Sensation intact, Cranial nerves 3-12 NL, Reflexes 2+ Psych/Mental Status: Mental status NL, Mood NL Case discussed with Dr Gna Operations or Procedures APPROVED REPORT EXAM: Two-dimensional and M-mode echocardiogram with Doppler and color Doppler. Blood Pressure: 126/73 mmHg INDICATION Chest Pain RISK FACTORS Obesity: Height: 5'10", Weight: 361 DIMENSIONS LVDd 4.0 (3.8-5.7cm) LA (2D) 4.1 (1.9-4.0cm) Aortic Root 3.3 (2.0- 3.7cm) LVDs 2.9 (2.5-4.0cm) LA (MM) (1.9-4.0cm) Aortic Cusp Exc 1.8 (1.5- 2.0cm) EF (%) 55.0 (55-70%) Rt. Atrium 4.7 (1.9-4.0cm) Asc. Aorta cm IVSd 1.2 (0.7-1.1cm) RV (D) 4.5 (1.8-2.4cm) PWd 1.2 (0.7-1.1cm) Mitral Valve Mitral Mitral Stenosis E wave 0.95m/s MV Mean GR. mmHg A wave 0.92m/s MV Peak GR. mmHg E/A ratio 1.0 2D MVA cm2 DECEL Time 219ms PRESS 1/2 Time ms Aortic Valve Aortic Valve Aortic Stenosis V1 1.10m/s AO Mean GR. 3mmHg V2 1.24m/s AO Peak GR. 6mmHg LVOT Diameter 2.2 (1.8-2.4cm) Doppler RAJINDER 3.37cm2 Pulmonic Valve V2 0.98m/s Tricuspid Valve TR Velocity 2.81m/s RVSP 40mmHg Other Information Technically limited study due to body habitus. Conclusion Normal LV size with low normal systolic function. LVEF 50-55%. Normal wall motion. Mild LVH. Probably grade 1 diastolic dysfunction. Normal RV size and function. Mild biatrial enlargement. No significant valvular disease. Trace MR. Trace TR. RVSP estimated at 40 mmHg based on RAP of 8 mmHg. Dilated, collapsing IVC. No pericardial effusion. TDS. Condition at Discharge: Stable Final Diagnosis/Problems List Chest pain and epigastric pain, likely due to GERD Ruled out ACS History of GERD Diabetes (hemoglobin A1c 6.7%) Morbid obesity Dyslipidemia sleep apnea, BiPAP during night History of asthma, stable ADHD Depression Anxiety Discharge Disposition: Home Discharge Instruct/Medications Diet: Consistent carbohydrate, Cardiac 2g Na,low cholest Diet comment: Consistent carbohydrate Cardiac 2g Na,low cholest Activity: Light activity Follow Up/Referral: [facility] Medications: see prescription Discharge Statement: "Patient was advised to return to the ER or call 911 if any headaches, dizziness, shortness of breath, chest pain, abdominal pain, bleeding, fevers, or worsening of medical condition. Patient was counseled about treatment plan, medications, possible side effects, patientverbalized understanding. All questions were answered to the best of my ability. This discharge took greater then 30 minutes in planning, reviewing documentation, counseling the patient, and discussing with other team members." ASSESSMENT ASSESSMENT Assessment NANCY REYES RESIDENT Jan 04, 2025 16:04
== END 2025-01-04 15:14 | disposition home or self-care (01) | DRG 243 ==
LOC: ER 19:25 → OVERFLOW 23:17 → TELE-WESTW 01-03 16:12
PROVIDERS: ADMIT Internal Medicine; ATTEND Internal Medicine
PROC: 5A09357 Assistance with Respiratory Ventilation, Less than 24 Consecutive Hours, Continuous Positive Airway Pressure (ICD-10-PCS; principal; 2025-01-03)
DX: K21.9 Gastro-esophageal reflux disease without esophagitis (principal); Z68.43 Body mass index [BMI] 50.0-59.9, adult; E11.9 Type 2 diabetes mellitus without complications; E66.01 Morbid (severe) obesity due to excess calories; F90.9 Attention-deficit hyperactivity disorder, unspecified type; F41.9 Anxiety disorder, unspecified; F32.A Depression, unspecified; G47.30 Sleep apnea, unspecified; E78.5 Hyperlipidemia, unspecified; R94.31 Abnormal electrocardiogram [ECG] [EKG]; J45.909 Unspecified asthma, uncomplicated; Z87.891 Personal history of nicotine dependence; Z91.148 Patient's other noncompliance with medication regimen for other reason; Z79.899 Other long term (current) drug therapy; Z79.4 Long term (current) use of insulin; Z79.82 Long term (current) use of aspirin
CPT/HCPCS: 36415; 71045; 74018; 80048; 80053; 80061; 80307; 81001; 82962; 83036; 83605; 83735; 83880; 84443; 84484; 85025; 85379; 85610; 85730; 93005; 93306; 96374; G0378; J2470